=== PATIENT | female | born 1950 | race Caucasian/White ===

== ENCOUNTER 2016-11-26 11:14 | Day surgery (SDC) | payer MEDICARE, OTHER ==
[~2016-11-26] VITALS: Ht 160 cm; Wt 68.0 kg
[2016-11-26] VITALS (12 sets, daily range): BP systolic 151–173; BP diastolic 78–93; PULSE 63–89; RESP 10–20; O2SAT 97–100
[~2016-11-26 11:14] MED LIST: ARIP15TA2 PO; CHOL200047 PO; CeFAZolin Inj 2 GM in IV Premix 1 EACH IV ONE; DILT180C83 PO; DOXA4TAB3 PO; FERR325C PO; HYDROmorphone 1 mg/mL Inj IVPUSH PRN; LEVO112T4 PO; Lactated Ringer's 1,000 ML IV ONE; MetoCLOpramide 5 mg/mL 2 mL Inj IVPUSH PRN; OMEG-145 PO; Ondansetron 2 mg/mL 2 mL Inj IVPUSH PRN; SERT100T9 PO; VIT1TABL83 PO; [UNRECOGNIZED DRUG - OTHER] PO
[2016-11-26] MEDS ORDERED: Dexamethasone 4 mg/mL Inj ONE (11:15)
[2016-11-26] MEDS ORDERED: Propofol 10,000 mCg/mL 20 mL Inj ONE (11:15)
[2016-11-26] MEDS ORDERED: fentaNYL-PF 50 mCg/mL 2 mL Inj ONE (11:15)
[2016-11-26] MEDS ORDERED: Ondansetron 2 mg/mL 2 mL Inj ONE (11:15)
[2016-11-26] MEDS ORDERED: Rocuronium 10 mg/mL 5 mL Inj ONE (11:15)
[2016-11-26] MEDS ORDERED: CeFAZolin Inj 2 gm / 50mL D5W IV ONE (11:23)
[2016-11-26] MEDS ORDERED: HYDROmorphone 1 mg/mL Inj IVPUSH PRN (12:30)
[2016-11-26] MEDS ORDERED: Lactated Ringer's 500 ML IV PRN (12:30)
[2016-11-26] MEDS ORDERED: Dexamethasone 4 mg/mL Inj IVPUSH PRN (12:30)
[2016-11-26] MEDS ORDERED: Lactated Ringer's 1,000 ML IV SCH (12:30)
[2016-11-26] MEDS ORDERED: fentaNYL-PF 50 mCg/mL 2 mL Inj IVPUSH PRN (12:30)
[2016-11-26] MEDS ORDERED: Ondansetron 2 mg/mL 2 mL Inj IVPUSH PRN (12:30)
--- NOTE | 2016-11-26 12:30 | PCM.HPANE ---
Patient Data Surgeon Admitting Provider: Attending Provider:Unique Chong MD Primary Care Physician:Nawaf Cobian MD Other Provider:Elida Wolfingham Anesthesia Reason for Visit Left Breast Cancer Ht/WT & BMI Height (Feet): 5 Height (Inches): 3.00 Weight (Kilograms): 68.040 Body Mass Index 26.00 Allergies Coded Allergies: amphetamine (Verified Allergy, Intermediate, restlessness, 07/08/15) dextroamphetamine (Verified Allergy, Intermediate, hyperactivity, 07/08/15 ) bupropion HCl (Verified Allergy, Unknown, 07/08/15) Past Anesthesia History Anesthesia History: Denies:: Abnormal Airway, Anesthesia Reactions, Difficult Intubation, Fam Anesthesia Reaction Diabetes History Hx Diabetes?: No MRSA MRSA: No Medications Hypertension Medication: Yes Home Meds Incl Beta Karthikeyan: No Reported Medications [place]-3/Dha/Epa/Fish Oil ([place] 3 500 Softgel)500 Mg (200 Mg-300 Mg)-1,000 Mg Capsule1 Each PO DAILY 11/23/16 Cholecalciferol (Vitamin D3) (Vitamin D3)2,000 Unit Capsule2,000 Unit PO DAILY 11/23/16 Vit B Comp/C/FA/Iron/Vit E (Vitamin B Complex Tablet)1 Each Tablet1 Each PO DAILY 07/07/15 Ferrous Sulfate (Iron)325 Mg Capsule.er325 Mg PO DAILY 07/07/15 Aripiprazole (Abilify)15 Mg Bxaxwd70 Mg PO DAILY Ref 0 10/20/14 Levothyroxine 112 Mcg Pbkwgk833 Mcg PO DAILY For Thyroid Replacement Ref 0 02/12/14 Diltiazem ER 180 Mg Cap.er.88r670 Mg PO DAILY Ref 0 02/12/14 Sertraline HCl (Sertraline)100 Mg Yuxnyb691 Mg PO DAILY Ref 0 02/12/14 Doxazosin Mesylate 4 Mg Tablet8 Mg PO HS Ref 0 02/12/14 [Calciu,Mag,Zinc] No Conflict Check2 Tab PO DAILY 02/12/14 Discontinued Reported Medications [place]-3 Fatty Acids (Fish Oil)500 Mg Bhypmsq325 Mg PO DAILY 07/07/15 Cholecalciferol (Vitamin D3) (D3-2000)2,000 Unit Capsule2,000 Unit PO DAILY 02/12/14 History History of ENT Problems?: Yes HEENT History: Positive for:: Cataracts (not yet surgically treated ) Dysphagia (hx of esophagectomy/ stricture dilated 1 week ago) Hearing Problem Denies:: Abnormal Airway Difficult Intubation Glaucoma Hx of Heart Problems?: Yes Cardiovascular History: Positive for:: Hypertension Denies:: AICD Abdominal Aortic Aneurism Atrial Fibrillation Cardiac Surgery Pacemaker Valvular Heart Disease Hx of Respiratory Problem?: Yes Respiratory History: Positive for:: Pneumonia (hx of ) Use of C-PAP Machine Denies:: Asthma Cough Emphysema Oxygen Administration Tuberculosis Use of Inhalers / NEBS Hx Neurologic Problems?: No Neurological History: Denies:: CVA Headaches Multiple Sclerosis Parkinson's Disease Seizures Hx of GI Problems?: Yes Gastrointestinal History: Positive for:: Gastroesphageal Reflux (esophagectomy , recent dilation ) Gastrointestinal Bleeding (when I was drinking) Liver Disease Denies:: Diverticulitis Hepatitis Rectal Bleeding Hx of Problems?: Yes Genitourinary History: Positive for:: HX of Hemodialysis (CKD stage IV- no dialysis) Denies:: Kidney Stones Urinary Tract Infection Female Hx: Positive for:: Problems with Breasts? (left breast current admission problem) Denies:: Currently (tubal ligation) Skin History: Denies:: History Skin Disorders? Pressure Ulcers Hx Musculoskeletal Problems?: Yes Musculoskeletal History: Positive for:: Osteoarthritis (osteoporosis) Denies:: Back Injury Fibromyalgia Joint Replacement Musculoskeletal Trauma Myasthenia Gravis Hx of Psycho/Social Problems?: Yes Psycho Social History: Positive for:: Bipolar Disorder Hx Depression Hx Surgeries?: Yes (left partial mastectomy, junie, esophagectomy, appe, tonsil , tubal) Hx Any Other Health Problems?: Yes Other History: Positive for:: Cancer (esophageal, recurrent left breast ) Thyroid Disease History Blood Transfusions: Positive for:: Accept Blood Products? 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 )Hx Substance Use: No Smoking Status: Former Smoker Have You Smoked inLast 12 mo: No Stop/Bang Treated for Sleep Apnea?: Yes Do You Have a CPAP Machine?: Yes S-Snoring: Do You Snore Loudly: Yes T-Tired: feel tired, fatigued: Yes O-Obsered: Observed not breath: Yes P-Blood Pressure: treated: Yes B- Body Mass Index > 35 kg/m2: No A- Age over 50: Yes N- Neck Large Circumference: No G- Gender Male: No MARU Total Score: 4 MARU Risk Assessment: High Risk, =/>3 Yes Risk Assessment Category Category 1A: Patient has history of documented sleep apnea, and HAS NOT received any narcotic, sedative or anesthesia administration during this stay. Category 1B: Patient has history of documented sleep apnea, and HAS received any narcotic , sedative or anesthesia administration during this stay Category 2: Patient has SUSPECTED Obstructive Sleep Apnea, and HAS received any narcotic , sedative or anesthesia administration during this stay. Category 3: Patient has SUSPECTED Obstructive Sleep Apnea and HAS NOT received narcotic, sedative or anesthesia administration during this stay. Category 4: Outpatient in Procedural Areas with known sleep apnea or who screen positive for High Risk via the STOP/BANG questionnaire. Exam Exam Vital Signs Vital Signs Date Time Temp Pulse Resp B/P Pulse Ox O2 Delivery O2 Flow Rate FiO2 11/26/16 12:02 35.4 71 17 154/84 99 Room Air General Appearance: Alert, Oriented X3 HEENT/AIRWAY: MP 1 Lungs: Clear to Auscultation Heart: Exam Unremarkable Plan Impression Patient chart reviewed, patient interviewed and anesthestic plan with risks, benefits, and alternatives discussed, and informed consent obtained. NPO Status: 11/26 black coffee @ 0927 ASA Physical Status: ASA2 Mod Systemic Disease Anesthetic Plan: GA (ETT) Bene/Risks/Altern/Consents: Yes HP Complete Prior to Induction: Yes Joel Anand MD Nov 26, 2016 12:30
[2016-11-26] MEDS ORDERED: Bupivacaine-MPF 0.5% 30 mL Inj INJ ONE (13:24)
--- NOTE | 2016-11-26 13:25 | DRSVH ---
PROCEDURE: NM SENTINEL NODE INJECTION ONLY, LEFT BREAST RADIOPHARMACEUTICAL: 0.540 mCi Millipore filtered Tc-99m sulfur colloid. INDICATIONS: pre op injection for intraoperative katalina localization PROCEDURE: The indications, alternatives, benefits, risks, and complications of the procedure were explained to the patient. Written informed consent was obtained and placed in the chart. The area around the nip ple was prepped and draped in a sterile fashion. Tc-99m sulfur colloid was injected in the outer edg e of the areola in the left breast. No image was obtained. IMPRESSION: Administration of radiotracer into the left breast periareolar region for intra-operativ e sentinel lymph node localization. Dictated by: Diamante King MD, PhD on 11/26/2016 at 13:23 Approved by: Diamante King MD, PhD on 11/26/2016 at 13:24
--- NOTE | 2016-11-26 14:15 | PCM.SURGPO ---
Immediate Operative Note Date of Surgery: Nov 26, 2016 Pre Operative Diagnosis Left breast Cancer Post Operative Diagnosis Left breast Cancer Procedure Left Simple Mastectomy with Left Axillary [place] Lymph node biopsy Surgeon and Wind Instrument Repairer Surgeon: Unique Chong MD Assistants: Duy Mai, Naima Baarjas MS3 Findings Single SLN Complications There were no periprocedural complications identified. Surgical Specimen Removed: Yes Specimen sent to Pathology: Yes Anesthetic Administered: GA Grafts, Implants: None Output, Estimated Blood Loss: 5 Blood Admin during surgery: No Attending Statement nurse practitioner physician assistant listed was medically necessary for the successful completion of the case Unique Chong MD Nov 26, 2016 14:15
--- NOTE | 2016-11-26 14:36 | PCM.ANEP2 ---
Post Anesthesia Evaluation ASA/CMS Post Anesthesia VS in Patient's Normal Range?: Yes Resp Stable; Airway Patent?: Yes CV Function & Hydration Stable: Yes Mental Status Recovered?: Yes Pain control Satisfactory?: Yes N/V Control Satisfactory?: Yes Joel Anand MD Nov 26, 2016 14:36
--- NOTE | 2016-11-26 14:36 | PCM.ANEP1 ---
Post Anesthesia Phase 1 PACU Phase 1 Assessment Date of Service: Nov 26, 2016 Vital Signs 154/93, 87, 36.2, 100%, 20 Vital Signs Date Time Temp Pulse Resp B/P Pulse Ox O2 Delivery O2 Flow Rate FiO2 11/26/16 12:02 35.4 71 17 154/84 99 Room Air Anesthetic Administered: GA Level of Alertness: Sleepy, easy to arouse SHAIKH's with Equal Strength: Yes Pain: No Nausea or Vomiting: No Oxygen Delivery: Simple Mask Lungs: Clear to Auscultation Dermatome Level: Full Sensation Summary UNEVENTFUL Joel Diaz MD Nov 26, 2016 14:36
--- NOTE | 2016-11-26 16:07 | OP ---
[address] [address] OPERATIVE REPORT PATIENT: LUPE MARISCAL : 1950 MR#: [id number] ADMIT: 11/26/2016 JOB ID: [id number] DATE OF SURGERY: 11/26/2016 PREOPERATIVE DIAGNOSIS(ES): Left breast cancer. POSTOPERATIVE DIAGNOSIS(ES): Left breast cancer. PROCEDURE PERFORMED: Left simple mastectomy with left axillary sentinel lymph node biopsy. SURGEON: Unique Chong MD. GATE MANAGER: Duy Mai PA-C, and SOLEDAD Castro. COMPLICATIONS: None. CONDITION OF THE PATIENT: Stable. ESTIMATED BLOOD LOSS: 5 mL. INDICATIONS: The patient is a 66-year-old lady who was treated with a 9 mm ER-positive, HER-2 negative, node negative left breast cancer with a partial mastectomy, axillary lymph node dissection, and adjuvant radiation in 2000, followed by five years of tamoxifen. She was then diagnosed with a T2, N1, M1, squamous cell carcinoma of the esophagus in 2011 and had an esophagectomy after neoadjuvant chemoradiation. She was recently diagnosed with an image detected left breast cancer in the upper outer quadrant and after discussing the risks, benefits, and alternatives, she comes in today for left simple mastectomy with attempted left axillary sentinel lymph node biopsy. She saw Dr. Vazquez and considered immediate reconstruction, but in end decided to go without it. PROCEDURE DETAILS: She was placed in a supine position. Underwent smooth induction of general anesthesia. She had injection of radiocolloid in the Day Surgery area prior to this. The left breast and axilla were prepped and draped in the usual sterile fashion. Surgical time-out was undertaken using safety checklist, and all were in agreement. I began by marking an elliptical incision around the nipple and made the skin incision, raising flaps superiorly, medially, inferiorly, and laterally. Superiorly the breast ended inferior to the clavicle, medially to the midline, inferior to the inframammary fold. After getting to the chest wall, I raised the breast off the chest wall controlling the perforators with electrocautery as indicated. I took this dissection laterally towards the axillary tail making sure that there is no katalina tissue being removed as part of the breast looking for signal. Then, I oriented the specimen with the stitch marking superior and passed it off. I then used the gamma counter to explore the left axilla and found the area of increased activity at the inferior most aspect of the axilla with the count in the 200 range. I grabbed this lymphatic tissue with an Allis clamp and excised it with electrocautery and I was able to actually get an ex vivo count of over 500. The background in the axilla was less than 10 and after ensuring good hemostasis, I placed a #15 ELIANE through a lateral stab incision and closed the mastectomy incision in layers of 3-0 Vicryl followed by 4-0 Monocryl. Then placed Dermabond as dressing. Patient was recovered from anesthesia and was taken to the recovery room in a stable condition.
--- NOTE | 2016-11-26 16:36 | NUR ---
Admit to OSC Pt transferred to OSC from PACU at 1530 hrs. Pt alert and oriented x 3. PIV patent and intact. VSS. On RA. All personal possessions with patient. No dressing on chest incision; incision clean, dry, and intact. ELIANE draining serosanguineous fluid. Friend at bedside. Care continues.
[2016-11-26 19:06] LABS: APPEARANCE,URINE CLEAR (CLEAR,HAZY); COLOR,URINE YELLOW (YELLOW); OCCULT BLOOD,URINE NEGATIVE (NEGATIVE); UROBILINOGEN,URINE NORMAL (NORMAL)
[2016-11-27 00:27] VITALS: BP 118/73; PULSE 82; RESP 20; O2SAT 98
--- NOTE | 2016-11-27 04:02 | NUR ---
activity pt has not been out of bed this shift. she has stated her pain at her incision is 2/10 at most and has denied any need for pain medication. incision is well approximated no signs of infection or hematoma. ELIANE drain putting out serosanguineous drainage. pt is apprehensive about caring for her ELIANE at home. teaching on how to strip and empty ELIANE has been started she will need more teaching before discharge. care continues.
[2016-11-27 05:36] VITALS: BP 116/69; PULSE 77; RESP 20; O2SAT 99
[2016-11-27] MEDS ORDERED: Diltiazem CD 180 mg ER24 Capsule PO SCH (08:30)
[2016-11-27] MEDS ORDERED: Vitamin B Complex/Vit C Tablet PO SCH (08:30)
[2016-11-27] MEDS ORDERED: Omega-3 Fatty Acids 1,000 mg Capsule PO SCH (08:30)
[2016-11-27] MEDS ORDERED: Polyethylene Glycol (PEG) 17 Gm Powder PO SCH (08:30)
--- NOTE | 2016-11-27 09:04 | PCM.DISURG ---
Surgical Discharge Instruction Date of Service Nov 27, 2016 Dates of Hospitalization Date of Hospital Admission Providers Admitting Physician: Primary Care Physician: Nawaf Cobian MD Attending Physician: Unique Chong MD Discharge Diagnosis Post Operative diagnosis Left breast Cancer s/p L Simple Mastectomy with SLN biopsy Diet Discharge Diet: Renal Diet Activity Discharge Activity-General: Be up and about Dressing and Incisional Care Dressing Care: Remove outer dressing after 24 hrs Hygiene: May shower Follow Up Plan Follow Up Plan Keep track of drain output. F/U when drain output <20ml/ day for 2 days Mid-level Provider (F9): Mariia Gonzalez PAC Follow-up appointment: Weeks (1) Call your provider for: Fever, Chills, Shortness of breath, Nausea, Vomiting, Wound redness, Increasing wound pain, Warmth to touch, Discharge @ incision, pus discharge Unique Chong MD Nov 27, 2016 09:04
--- NOTE | 2016-11-27 09:06 | PCM.PNSURG ---
Subjective Date of Service: Nov 27, 2016 Visit Information: Reason for Visit Left Breast Cancer Surgery/Surgery Date L SIMPLE MASTECTOMY with SLN Biopsy 11/26/16 Post-Op Day # 1 Subjective: Feels well, No pain Objective Vital Sign- Last 8 Hours Date Time Temp Pulse Resp B/P Pulse Ox O2 Delivery O2 Flow Rate FiO2 11/27/16 05:36 36.6 77 20 116/69 99 Room Air Intake and Output- Last 8 Hour 11/27/16 Cumulative From/Thru 07:00 11/23/16 10:54 - 11/27/16 06:29 Intake Total 1280 ml 2680 ml Output Total 930 ml 1966 ml Balance 350 ml 714 ml Intake Oral 1280 ml 1680 ml IV Total 1000 ml Output Urine Total 900 ml 1900 ml Drainage Total 30 ml 60 ml Estimated Blood Loss 6 ml Chest: Incisions C/D/I. No hematoma Assessment & Plan Impression Doing well Problems: Plan Drain Care teaching Discharge Home Unique Chong MD Nov 27, 2016 09:06
--- NOTE | 2016-11-27 12:09 | NUR ---
Discharge Pt discharged at 1105 in w/c to private vehicle with friend. Pt has no pain. VSS, SHAIKH, A&O x 3. No dressing on incision site and it is well approximated. Pt has discharge instructions, care notes and no new rx's given. ELIANE teaching done and pt understands to measure output, write it down and take with her to f/u appt. Pt has all belongings and all questions answered.
--- NOTE | 2016-11-27 12:15 | PCM.DC.SUR ---
Discharge Summary Date of Service: Date of Hospital Admission: 11/26/2016 Date of Operation(s): 11/26/2016 Date of Discharge: Nov 27, 2016 at 11:08 Diagnosis at Time of Discharge Primary diagnosis: Left breast cancer Other diagnoses: 1. T1 N0 M0 ER/[place] positive HER-2/timothy negative left breast cancer in 2000 2. 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 Bipolar disorder 4. Chronic renal insufficiency, stage IV 5. Hypertension 6. Gastroesophageal reflux disease 7. Anemia 8. Obstructive sleep apnea 9. Periodic limb movement disorder 10. Deep vein thrombosis 11. Osteoporosis 12. Colon polyps Problems: Operation Left simple mastectomy with left axillary sentinel lymph node biopsy Brief History and Physical: The patient is a 66-year-old lady who was treated with a 9 mm ER-positive, HER-2 negative, node negative left breast cancer with a partial mastectomy, axillary lymph node dissection, and adjuvant radiation in 2000, followed by five years of tamoxifen. She was then diagnosed with a T2, N1, M1, squamous cell carcinoma of the esophagus in 2011 and had an esophagectomy after neoadjuvant chemoradiation. She was recently diagnosed with an image detected left breast cancer in the upper outer quadrants. She saw Dr. Vazquez and considered immediate reconstruction, but in end decided to go without it. Consultants: None Hospital Course: The patient was admitted and underwent the above-mentioned operation without complication. She was stable for discharge from the hospital the following morning. Pathology: Pending Disposition: The patient was discharged home on her first postsurgical day. Follow-up Plan: She will follow-up in the office with Mariia Gonzalez PA-C in 1 week. ([Calciu,Mag,Zinc]) 2 TAB PO DAILY (Reported) Aripiprazole (Abilify) 15 Mg Tablet 15 MG PO DAILY (Reported) Cholecalciferol (Vitamin D3) (Vitamin D3) 2,000 Unit Capsule 2,000 UNIT PO DAILY (Reported) Diltiazem ER (Diltiazem ER) 180 Mg Cap.er.24h 180 MG PO DAILY (Reported) Doxazosin Mesylate (Doxazosin Mesylate) 4 Mg Tablet 8 MG PO HS (Reported) Ferrous Sulfate (Iron) 325 Mg Capsule.er 325 MG PO DAILY (Reported) Levothyroxine (Levothyroxine) 112 Mcg Tablet 112 MCG PO DAILY (Reported) [place]-3/Dha/Epa/Fish Oil ([place] 3 500 Softgel) 500 Mg (200 Mg-300 Mg)-1,000 Mg Capsule 1 EACH PO DAILY (Reported) Sertraline HCl (Sertraline) 100 Mg Tablet 200 MG PO DAILY (Reported) Vit B Comp/C/FA/Iron/Vit E (Vitamin B Complex Tablet) 1 Each Tablet 1 EACH PO DAILY (Reported) copies to: Nawaf Cobian MD, Fred H PA-C Nov 27, 2016 12:15
--- NOTE | 2016-11-28 11:18 | PATH ---
SURGICAL PATHOLOGY Attending Physician:Unique Chong MD CASE STATUS: Signed Out PATIENT NAME: LUPE MARISCAL PID: [id number] : 1950 DATE COLLECTED:11/26/2016 23:45 SPECIMEN: 1: Breast mass, oriented 2: [place] Lymph Node CLINICAL HISTORY: LEFT BREAST CANCER 1). LEFT SIMPLE MASTECTOMY STITCH: SUPERIOR 2). LEFT AXILLARY SENTINEL NODE #1 FINAL DIAGNOSIS: 1.LEFT SIMPLE MASTECTOMY SPECIMEN: INVASIVE CARCINOMA OF THE BREAST (SEE CAP CANCER CASE SUMMARY BELOW):CAP CANCER CASE SUMMARY INVASIVE CARCINOMA OF THE BREAST: PROCEDURE: LEFT SIMPLE MASTECTOMY LYMPH NODE SAMPLING: SINGLE SENTINEL LYMPH NODE (SEE PART 2) SPECIMEN LATERALITY: LEFT TUMOR SITE: UPPER OUTER QUADRANT TUMOR SIZE: 1.1 X 1.0 X 1.0 CM HISTOLOGIC TYPE: INFILTRATING DUCTAL CARCINOMA HISTOLOGIC GRADE: WERNER HISTOLOGIC SCORE 4 OF 9 Glandular/Tubular differentiation: Score 1 of 3 Nuclear Pleomorphism: Score 2 of 3 Mitotic Rate: Score 1 of 3 Overall Grade: Grade LOW GRADE (GRADE 1 OF 3) TUMOR FOCALITY: SINGLE FOCUS DUCTAL CARCINOMA IN SITU: Size (Extent) of DCIS: SINGLE 0.2 CM FOCUS Architectural patterns: MICROPAPILLARY Nuclear grade: Grade INTERMEDIATE (2 OF 3) Necrosis: ABSENT MACROSCOPIC AND MICROSCOPIC EXTENT OF TUMOR SKIN: NEGATIVE NIPPLE: NEGATIVE SKELETAL MUSCLE: ABSENT MARGINS INVASIVE CARCINOMA: Anterior: 0.4 CM Posterior: 4.0 CM Superior: 4.5 CM Inferior: 7.8 CM Medial: 6.2 CM Lateral: 6.2 CM DUCTAL CARCINOMA IN SITU: ALL MARGINS GREATER THAN 1.0 CM LYMPH NODES Total number of lymph nodes examined: 1 Number of sentinel lymph nodes examined: 1 Lymph Node Involvement: SINGLE SENTINEL LYMPH NODE NEGATIVE FOR TUMOR Method of Evaluation of [place] Lymph Nodes: HISTOLOGIC SERIAL SECTIONS LYMPH-VASCULAR INVASION: NOT IDENTIFIED PATHOLOGIC STAGING: AJCC, 7th ed., 2010 PRIMARY TUMOR: pT1c REGIONAL LYMPH NODES: pN0 (sn) ANCILLARY STUDIES: Biomarkers Performed Previously on Case: SEE CASE [id number] Estrogen Receptor (ER) Status: STRONGLY POSITIVE Progesterone Receptor (PgR) Status: WEAKLY POSITIVE HER2 (by immunohistochemistry): 2+ (INDETERMINATE). FISH ANALYSIS COULD NOT BE PERFORMED, AND WILL BE PERFORMED ON THIS SPECIMEN AND REPORTED IN AN ADDENDUM. 2.LEFT AXILLARY SENTINEL LYMPH NODE #1: SINGLE LYMPH NODE NEGATIVE FOR MALIGNANCY. ICD10 CODE C50.412 GROSS DESCRIPTION: The specimens are received in formalin, labeled with the patient's name, and sublabeled as the following: (1) right simple mastectomy, stitch: superior; (2) left axillary sentinel node #1. (1) the specimen consists of a left breast (2.5 cm AP, 13.5 cm SI, 13.2 cm ML) partially covered by an ellipse of skin (16.1 cm SI, 12.5 cm ML) with nipple/areola complex (3.5 x 2.7 cm). The specimen is oriented with a black suture indicating the superior margin. The specimen is serially sectioned ML into 32 slices with the medial and lateral resection margins as slices #1 and #32 respectively. The breast tissue is densely fibrous and contains a mendoza white solid firm irregular mass (1.1 x 1.0 x 1.0 cm) within slices #18-#21. The mass is 0.5 cm from the anterior, cervical and 4 cm from the posterior, 4.5 cm and the superior, 7.8 cm from the inferior, 6.2 cm from the medial, and 6.2 cm from the lateral resection margins. No other nodules, masses or lesions are identified. The skin and nipple/areola complex are coe-pink and unremarkable. Ink code: purple-anterior; yellow-posterior; black-superior; orange-inferior; green-medial; blue-lateral. Section code: (1A) nipple; (1B) skin; (1C) medial resection margin, perpendicularly sectioned, agency sales representative; (1D) slice #17, tissue adjacent to mass, agency sales representative; (1E) slice #18, agency sales representative; (1F-1G) slice #19, agency sales representative, bisected and submitted SI; (1H, 1I) slice #20, agency sales representative; (1J) slice #21, agency sales representative; (1K) slice #22, tissue adjacent to mass, agency sales representative; (1L) lateral resection margin, perpendicularly sectioned, agency sales representative. Note: Approximate total fixation time in formalin-30 hours and 30 minutes calculated using a collection date of November 26, 2016 with no collection time given. (2) The specimen consists of a piece of adipose tissue (3.1 x 1.9 x 0.2 cm) containing a lymph node (0.8 x 0.5 x 0.2 cm). Section code: (2A) one lymph node, serially sectioned; (2B) remaining adipose tissue. Specimen entirely submitted. 11/27/16 JM MICRO DESCRIPTION: See diagnosis. ICD-9 CODES: CPT CODES: 1: 04605, inter, 70080, 27375 2: 91451 PROCEDURE/ADDENDA: Addendum SPI Addendum Diagnosis TEST: HER-2/CEP17 FISH PATIENT RATIO: 1.08 Ave Her2/timothy: 2.00 Ave CEP17: 1.90 FISH RESULT: NEGATIVE FOR AMPLIFICATION OF HER-2/timothy Addendum Comment Please see [facility] Report [id number] for complete details. Electronically Signed Out Rosa Isela Bernard MD Addendum SPI Addendum Diagnosis TEST: ONCOTYPE DX Recurrence Score Result: 16 ER Score: 11.6 Positive ND Score: 3.8 Negative HER2 Score: 9.7 Negative Addendum Comment Please see [employer] Report [id number] for complete details. Testing and Interpretation by [employer], [place], [place]. Testing requested by Dr. Singh, [facility]. Electronically Signed Out Artem Johnson MD Electronically Signed Out Artem Johnson MD [facility] Pathology [facility] [address], [place] [address] Technical component performed at [facility], [address], [place], [address]
[2017-01-04] MEDS ORDERED: CALC600T12 PO (10:58)
== END 2016-11-27 11:08 | disposition home or self-care (01) ==
LOC: SAS 11:14 → OSC 15:08 → SAS 11-27 11:08
PROVIDERS: ATTEND Student in an Organized Health Care Education/Training Program
DX: C50.412 Malignant neoplasm of upper-outer quadrant of left female breast (principal); C50.212 Malignant neoplasm of upper-inner quadrant of left female breast; I12.9 Hypertensive chronic kidney disease with stage 1 through stage 4 chronic kidney disease, or unspecified chronic kidney disease; F31.9 Bipolar disorder, unspecified; N18.4 Chronic kidney disease, stage 4 (severe); K21.9 Gastro-esophageal reflux disease without esophagitis; D64.9 Anemia, unspecified; G47.33 Obstructive sleep apnea (adult) (pediatric); F10.21 Alcohol dependence, in remission; M19.90 Unspecified osteoarthritis, unspecified site; Z17.0 Estrogen receptor positive status [ER+]; Z85.01 Personal history of malignant neoplasm of esophagus; Z86.718 Personal history of other venous thrombosis and embolism; Z86.010 Personal history of colon polyps; Z93.4 Other artificial openings of gastrointestinal tract status; Z87.891 Personal history of nicotine dependence
CPT/HCPCS: 19303; 38525; 38792; 81000; A9541; J0690; J1100; J2250; J2405; J3010; J7120